=== PATIENT | female | born 1960 | race Caucasian/White ===

== ENCOUNTER 2018-12-03 01:37 | Day surgery (SDC) | payer BC ==
[~2018-12-03] VITALS: Ht 152.4 cm; Wt 75.7 kg
[~2018-12-03 01:37] MED LIST: CELE-1 PO; EZET10TA41 PO; LORA-802 PO; MONT10TA PO; SUMA100T32 PO; VALS1TAB63 PO
[2018-12-03] MEDS ORDERED: PROPOFOL EMUL(*) 10MG/ML 20 ML 40 ML ONE (07:16)
[2018-12-03 08:30] VITALS: BP 128/81
[2018-12-03] MEDS ORDERED: LIDOCAINE/SOD BICARB 8.4% SYR ID ONE (08:40)
[2018-12-03] MEDS ORDERED: NORMOSOL R SOLN(*) 1000 ML BAG 1,000 ML IV PRN (08:40)
[2018-12-03] MEDS ORDERED: PROPOFOL EMUL(*) 10MG/ML 20 ML 20 ML ONE (10:14)
[2018-12-03 10:41] VITALS: BP 88/59
--- NOTE | 2018-12-03 10:51 | NUR ---
Patient supplymental oxygen reduced to 5L/Min. will continue to assess. Patient tolerating well.
--- NOTE | 2018-12-03 11:10 | NUR ---
Patient supplemental oxygen removed. patient tolerating well. O2 sats remaining above 94%
--- NOTE | 2018-12-03 11:25 | NUR ---
Patient given pudding to eat along with water. Tolerating well. Will continue to monitor
[2018-12-03 11:33] VITALS: BP 117/79
[2018-12-03 11:36] VITALS: BP 116/79
--- NOTE | 2018-12-03 11:55 | NUR ---
Orthostatic vitals taken, Sitting- BP 126/79 O2 sat. 91% Standing- 126/81, O2 sat. 90% Patient tolerated well.
[2018-12-03 12:00] VITALS: BP 126/81
== END 2018-12-03 12:10 | disposition home or self-care (01) ==
LOC: OR 01:37
PROVIDERS: ATTEND Internal Medicine Gastroenterology
DX: K64.9 Unspecified hemorrhoids (principal); K57.30 Diverticulosis of large intestine without perforation or abscess without bleeding; K20.9 Esophagitis, unspecified; K44.9 Diaphragmatic hernia without obstruction or gangrene; K29.70 Gastritis, unspecified, without bleeding
CPT/HCPCS: 00813; 43239; 43248; 45380; 88305; 88313; 88342; J2704